=== PATIENT | female | born 1975 | race Caucasian/White ===

== ENCOUNTER 2021-12-21 20:54 | Emergency (ER) | payer OTHER ==
[2021-12-21 21:06] VITALS: BP 117/77; PULSE 75; RESP 18; TEMP 97.6; BMI 21.1
[2021-12-21 22:29] LABS: HCG,QUALITATIVE URINE Negative
[2021-12-21 22:30] LABS: EPI CELLS 10 /uL (0-25.1); HYALINE CASTS 3 /uL (0-3.1); PH,URINE 7.5 (5.0-8.0); URINE APPEARANCE TURBID; URINE BACTERIA 36 /uL (0-1359); URINE BILIRUBIN NEGATIVE (NEGATIVE); URINE COLOR RED; URINE GLUCOSE (UA) NEGATIVE (NEGATIVE); URINE KETONE NEGATIVE (NEGATIVE); URINE LEUK ESTERASE 3+ (NEGATIVE); URINE NITRITE NEGATIVE (NEGATIVE); URINE PROTEIN 3+ (NEGATIVE); URINE UROBILINOGEN 0.2 mg/dL (0.2-1.0); URINE WBC 2759 /uL (0-25.8)
[2021-12-21] MEDS ORDERED: SULFAMETHOXAZOLE/TRIMETHOPRIM 800MG/160MG D.S. TABLET PO ONE (22:58)
[2021-12-21] MEDS ORDERED: SULFAMETHOXAZOLE/TRIMETHOPRIM 800MG/160MG D.S. TABLET ONE ×2 (23:01)
[2021-12-21 23:11] LABS: URINE RBC 18455 /uL (0-23.9)
== END 2021-12-21 23:04 | disposition home or self-care (01) ==
LOC: JER 20:54
DX: N30.01 Acute cystitis with hematuria (principal)
CPT/HCPCS: 36415; 81003; 84703; 87086; 87186; 87491; 87591; 99283-25